=== PATIENT | female | born 1990 | race Hispanic/Latino ===

== ENCOUNTER 2016-07-28 15:51 | Emergency (ER) | payer SELFPAY ==
[2016-07-28 16:27] VITALS: BP 110/65
--- NOTE | 2016-07-28 18:51 | Emergency Department Report ---
ED Rash HPI - HPI Chief Complaint: Skin Rash Stated Complaint: SKIN RASH Time Seen by Provider: 07/28/16 18:47 Rash Symptoms: Yes Itching, Yes Peeling (scaling), No Facial Swelling, No Tongue /Oral Swelling, No Breathing Difficulties, No Choking Sensation, No Wheezing/ Dyspnea, No Blistering, No Fever, No Lightheaded, No Malaise, No Myalgias Severity: moderate Other History: Patient presents for eval of body rash. States rash ongoing for more than 2 years beginning on her back as white patches. Then on her stomach 1 month ago. Reports itching and flaking. Denies fever,c hills, N/V/D, sore throat, recent URI. Denies other acute complaints today. ED Review of Systems ROS: Stated complaint: SKIN RASH Other details as noted in HPI Comment: All other systems reviewed and negative Musculoskeletal: denies: joint swelling, arthralgia, myalgia Skin: rash, change in color, pruritus Neurological: denies: headache, weakness, numbness, paresthesias ED Past Medical Hx - Past Medical History Additional medical history: anemia - Surgical History Past Surgical History?: No - Social History Smoking Status: Current Every Day Smoker Substance Use Type: Alcohol - Medications Home Medications: Home Medications Medication Instructions Recorded Confirmed Last Taken Type Hydrocortisone 0.5% (Nf) 1 applicatio TP TID #1 tube 07/28/16 Unknown Rx [Hydrocortisone 0.5% OINT] Loratadine [Claritin] 10 mg PO DAILY PRN #30 tablet 07/28/16 Unknown Rx Rash Exam - Exam General: Vital signs noted. No distress. Alert and acting appropriately. HEENT: No Periorbital Edema, No Conjuctival Injection, No Chemosis, No Perioral Edema, No Tongue Edema, No Uvular Edema, No Compromised Airway, No Drooling Lungs: Yes Good Air Exchange, No Wheezes, No Ronchi, No Stridor, No Cough, No Labored Respirations, No Retractions, No Use of Accessory Muscles, No Other Abnormal Lung Sounds Heart: Yes Regular Skin: Yes Erythema, No Urticarial Rash, No Maculopapular Rash (Multiple plaques with purplish and some silvery coating.), No Morbilliform rash, No Bulla(e), No Excoriations, No Weeping, No Tenderness, No Edema, No Encrustations, No Other Other: Positive: Abdomen Normal, Neurologic Normal, Musculoskeletal Normal ED Course Vital Signs 07/28/16 16:22 Temperature 98.6 F Pulse Rate 62 Respiratory 18 Rate Blood Pressure 110/65 O2 Sat by Pulse 97 Oximetry Critical care attestation.: If time is entered above; I have spent that time in minutes in the direct care of this critically ill patient, excluding procedure time. ED Disposition Clinical Impression: Psoriasis Disposition: DISCHARGED TO HOME OR SELFCARE Is pt being admited?: No Does the pt Need Aspirin: No Condition: Stable Instructions: Psoriasis (ED) Prescriptions: Loratadine [Claritin] 10 mg PO DAILY PRN #30 tablet PRN Reason: Itching Hydrocortisone 0.5% (Nf) [Hydrocortisone 0.5% OINT] 1 applicatio TP TID #1 tube Referrals: PRIMARY CARE, [Primary Care Provider] - 2-3 Days JOJO ORTIZ MD [Staff Physician] - [facility]
[2016-07-28] MEDS ORDERED: ROCEPHIN/NS 1 GM/50 ML 50 ML IV ONE (21:26)
== END 2016-07-28 19:00 | disposition home or self-care (01) ==
LOC: ED 15:51
DX: L40.9 Psoriasis, unspecified (principal); F17.200 Nicotine dependence, unspecified, uncomplicated
CPT/HCPCS: 99282; J0696